=== PATIENT | female | born 1990 | race American Indian/Alaskan Native ===

== ENCOUNTER 2018-10-03 06:27 | Emergency (ER) | payer OTHER ==
[2018-10-03] MEDS ORDERED: PERCOCET 5/325 PO ONE (09:20)
--- NOTE | 2018-10-03 09:25 | Emergency Department Report ---
HPI - General Chief Complaint: Extremity Injury, Upper Time Seen by Provider: 10/03/18 09:08 - HPI HPI: 28-year-old -[place] female presents to the emergency department with a three-day history of a frontal headache. It is intermittent but has been going on more consistently today. She has some mild photophobia but denies any vision change, slurred speech or any neurological deficits. She tried some ibuprofen for her discomfort without any relief. She does not have a primary care physician. No past medical history. She denies any tobacco or illicit drug use or abuse. ED Past Medical Hx - Past Medical History Previous Medical History?: No - Surgical History Past Surgical History?: No - Social History Smoking Status: Never Smoker Substance Use Type: None ED Review of Systems ROS: Stated complaint: CP/COLÓN Other details as noted in HPI Comment: All other systems reviewed and negative Constitutional: denies: chills, fever Eyes: denies: eye pain, vision change ENT: denies: ear pain, throat pain Respiratory: denies: cough, shortness of breath Cardiovascular: denies: chest pain, palpitations Gastrointestinal: denies: abdominal pain, vomiting Genitourinary: denies: dysuria, frequency Musculoskeletal: denies: back pain, arthralgia Skin: denies: rash, lesions Neurological: headache. denies: weakness, numbness Physical Exam - Physical Exam Vital Signs: Vital Signs 10/03/18 06:37 Temperature 98.6 F Pulse Rate 81 Respiratory 18 Rate Blood Pressure 109/57 O2 Sat by Pulse 99 Oximetry Physical Exam: GENERAL: The patient is well-developed well-nourished. HEENT: Normocephalic. Atraumatic. Patient has moist mucous membranes. EYES: Extraocular motions are intact. Pupils are equal and reactive to light bilaterally. No nystagmus. NECK: Supple. Trachea is midline. CHEST/LUNGS: Clear to auscultation. There is no respiratory distress noted. HEART/CARDIOVASCULAR: Regular. There is no tachycardia. There is no obvious murmur. ABDOMEN: Abdomen is soft, nontender. Patient has normal bowel sounds. Obese habitus. SKIN: Skin is warm and dry. NEURO: The patient is awake, alert, and oriented. The patient is cooperative. The patient has no focal neurologic deficits. The patient has normal speech. Cranial nerves II through XII grossly intact. MUSCULOSKELETAL: There is no tenderness or deformity. There is no limitation range of motion. There is no evidence of acute injury. ED Course Vital Signs 10/03/18 06:37 Temperature 98.6 F Pulse Rate 81 Respiratory 18 Rate Blood Pressure 109/57 O2 Sat by Pulse 99 Oximetry ED Medical Decision Making - Lab Data Result diagrams: 10/03/18 09:25 10/03/18 09:25 - Radiology Data Radiology results: report reviewed CT of the head/brain without contrast was read by radiology as no acute intracranial abnormality seen. Read by Dr. Palacios. - Medical Decision Making Patient presents to the emergency department with a few days of episodic frontal headache. No focal, motor or sensory deficits in her cranial nerves are intact. Labs are unremarkable. CT scan of the head did not show any bleed, shift, mass, ischemia, or any other acute intracranial process. Vital signs stable throughout ED course. The patient was given a single dose of pain medication and upon reevaluation her headache is greatly improved if not resolved. She was seen ambulatory in the emergency department and appeared stable. She was given referrals for primary care. She'll return to the ER if any worsening of her symptoms or any acute distress. - Differential Diagnosis tension COLÓN, Migraine, cluster headache, SAH Critical Care Time: No Critical care attestation.: If time is entered above; I have spent that time in minutes in the direct care of this critically ill patient, excluding procedure time. ED Disposition Clinical Impression: Headache Qualifiers: Headache type: unspecified Headache chronicity pattern: episodic headache Intractability: not intractable Qualified Code(s): R51 - Headache Disposition: DC- TO HOME OR SELFCARE Is pt being admited?: No Condition: Stable Instructions: Acute Headache (ED) Additional Instructions: Please follow up with a primary care physician in the next few days. Return to the emergency Department with any worsening of your symptoms or any acute distress. Referrals: JAZMINE CANNON MD [Staff Physician] - 2-3 Days [facility] [Outside] - 2-3 Days Time of Disposition: 10:47
[2018-10-03 09:35] LABS: Basophils # (Auto) 0.1 K/mm3 (0.0-0.1); Basophils % (Auto) 1.1 % (0.0-1.8); Eosinophils # (Auto) 0.1 K/mm3 (0.0-0.4); Eosinophils % (Auto) 1.2 % (0.0-4.3); Hematocrit 36.9 % (30.3-42.9); Hemoglobin 12.6 gm/dl (10.1-14.3); Lymphocytes # (Auto) 2.5 K/mm3 (1.2-5.4); Lymphocytes % (Auto) 39.9 % (13.4-35.0); Mean Corpuscular HGB Conc 34 % (30-34); Mean Corpuscular Volume 80 fl (79-97); Monocytes # (Auto) 0.4 K/mm3 (0.0-0.8); Monocytes % (Auto) 7.2 % (0.0-7.3); Platelet Count 279 K/mm3 (140-440); Red Blood Count 4.61 M/mm3 (3.65-5.03); Red Cell Distribution Width 15.4 % (13.2-15.2)
[2018-10-03 10:19] LABS: BUN/Creatinine Ratio 18; Blood Urea Nitrogen 9 mg/dL (7-17); Hemolysis Index 2
[2018-10-03 11:14] VITALS: BP 109/61
--- NOTE | 2018-10-03 12:54 | Cat Scan Report ---
PROCEDURE: CT HEAD/BRAIN WO CON TECHNIQUE: A noncontrast CT of the head was performed. HISTORY: headache COMPARISON: None FINDINGS: There is no acute intracranial hemorrhage. There is no brain edema, mass effect or midline shift. Ventricular size is appropriate for brain volume. There is no abnormal extra-axial fluid collections. There is no skull fracture seen. There is a small retention cyst in left maxillary sinus. IMPRESSION: There is no acute intracranial abnormality seen. This document is electronically signed by Barbara Palacios MD., October 03 2018 10:33:07 AM ET
== END 2018-10-03 11:15 | disposition home or self-care (01) ==
LOC: ED 06:27
DX: R51 Headache (principal); H53.149 Visual discomfort, unspecified
CPT/HCPCS: 36415; 70450; 80048; 84703; 85025; 93005; 93010; 99284